=== PATIENT | male | born 1990 | race Hispanic/Latino ===

== ENCOUNTER 2018-06-28 04:29 | Emergency (ER) | payer SELFPAY ==
[2018-06-28] MEDS ORDERED: FLUORESCEIN SODIUM 0.6 MG/WRAP ONE (04:55)
[2018-06-28] MEDS ORDERED: TETRACAINE HCL 0.5% 2ML OPTH ONE (04:55)
--- NOTE | 2018-06-28 05:10 | ER ---
Nurse's Notes [facility] Name: Kosta Raymond Age: 27 yrs Sex: Male : 1990 Arrival Date: 06/28/2018 Time: 04:31 Bed 7 Private MD: Diagnosis: Ocular pain, left eye Presentation: 06/28 04:48 Presenting complaint: Patient states: Pt was getting ready for worked and rubbed his tl2 eye, states he felt like something stabbed it. Denies blurry vision, states that it feels uncomfortable. Transition of care: patient was not received from another setting of care. Mechanism of Injury: No Mechanism of Injury. The patient denies any loss of vision. Onset of symptoms was June 28, 2018 at 03:30. Risk Assessment: Do you want to hurt yourself or someone else? Patient reports no desire to harm self or others. Initial Sepsis Screen: Does the patient meet any 2 criteria? No. Patient's initial sepsis screen is negative. Does the patient have a suspected source of infection? No. Patient's initial sepsis screen is negative. Care prior to arrival: None. 04:48 Method Of Arrival: Ambulatory tl2 04:48 Acuity: MYLES 4 tl2 Triage Assessment: 04:51 General: Appears in no apparent distress. uncomfortable, Behavior is calm, cooperative, tl2 appropriate for age. Pain: Complains of pain in right eye. EENT: Sclera/Cornea are reddened in outer aspect of conjuctiva of right eye, iris of right eye and inner aspect of conjuctiva of right eye. Neuro: Level of Consciousness is awake, alert, obeys commands, Oriented to person, place, time, situation. Historical: - Allergies: 04:51 No Known Allergies; tl2 - Home Meds: 04:51 None [Active]; tl2 - PMHx: 04:51 None; tl2 - PSHx: 04:51 None; tl2 - Immunization history:: Adult Immunizations up to date. - Social history:: Smoking status: Patient/guardian denies using tobacco. - Ebola Screening: : No symptoms or risks identified at this time. - Family history:: not pertinent. Screenin:53 Abuse screen: Denies threats or abuse. Nutritional screening: No deficits noted. tl2 Tuberculosis screening: No symptoms or risk factors identified. Fall Risk None identified. Assessment: 04:53 General: see triage assessment. tl2 05:21 Reassessment: Patient appears in no apparent distress at this time. Patient is alert, aa1 oriented x 3, equal unlabored respirations, skin warm/dry/pink. Discussed d/c \T\ f/u instructions with pt; denies questions or concerns at this time. EENT: Eyes without injury noted. Sclera/Cornea are clear in right eye and left eye. Vital Signs: 04:51 BP 115 / 73; Pulse 64; Resp 16; Temp 97.8; Pulse Ox 99% on R/A; Weight 62.6 kg; Height tl2 5 ft. 7 in. (170.18 cm); Pain 0/10; 04:51 Body Mass Index 21.61 (62.60 kg, 170.18 cm) tl2 ED Course: 04:31 Patient arrived in ED. al2 04:43 Jair Teixeira MD is Attending Physician. [facility] 04:49 Triage completed. tl2 04:51 Arm band placed on right wrist. tl2 04:53 Patient has correct armband on for positive identification. Bed in low position. Call tl2 light in reach. Side rails up X 1. 05:05 Assist provider with eye exam of left eye. using fluorescein stain, Performed by Jair Teixeira MD Patient tolerated well. Patient did not have IV access during this emergency room visit. 05:09 Albaro Be MD is Referral Physician. sonja 05:20 Amanda Turner, RN is Primary Nurse. aa1 Administered Medications: No medications were administered Outcome: 05:09 Discharge ordered by . sonja 05:21 Discharged to home ambulatory. aa1 05:21 Condition: good 05:21 Discharge instructions given to patient, Instructed on discharge instructions, follow up and referral plans. medication usage, Demonstrated understanding of instructions, follow-up care, medications, Prescriptions given X 1. 05:23 Patient left the ED. aa1 Signatures: Amanda Turner, RN RN [email or web address] Jair Teixeira MD MD cha Knox, Taylor, RN RN tl2 Janene Azul al2
--- NOTE | 2018-06-28 05:10 | EDPHYS ---
Physician Documentation [facility] Name: Kosta Raymond Age: 27 yrs Sex: Male : 1990 Arrival Date: 06/28/2018 Time: 04:31 Bed 7 Private MD: ED Physician Jair Teixeira HPI: 06/28 04:58 This 27 yrs old Male presents to ER via Ambulatory with complaints of Eye Pain.sonja 04:58 The patient is experiencing pain, The patient sustained Unknown. Onset: The sonja symptoms/episode began/occurred yesterday. Duration: the symptoms are intermittent. Aggravated by blinking, Alleviated by nothing. Associated signs and symptoms: Pertinent positives: None. Patient wears glasses. Severity of symptoms: At their worst the symptoms were mild moderate in the emergency department the symptoms have improved moderately. The patient has not experienced similar symptoms in the past. Historical: - Allergies: 04:51 No Known Allergies; tl2 - Home Meds: 04:51 None [Active]; tl2 - PMHx: 04:51 None; tl2 - PSHx: 04:51 None; tl2 - Immunization history:: Adult Immunizations up to date. - Social history:: Smoking status: Patient/guardian denies using tobacco. - Ebola Screening: : No symptoms or risks identified at this time. - Family history:: not pertinent. ROS: 04:58 Constitutional: Negative for fever, chills, and weight loss, ENT: Negative for injury, sonja pain, and discharge, Neck: Negative for injury, pain, and swelling, Cardiovascular: Negative for chest pain, palpitations, and edema, Respiratory: Negative for shortness of breath, cough, wheezing, and pleuritic chest pain, Abdomen/GI: Negative for abdominal pain, nausea, vomiting, diarrhea, and constipation, Back: Negative for injury and pain, : Negative for injury, bleeding, discharge, and swelling, MS/Extremity: Negative for injury and deformity, Skin: Negative for injury, rash, and discoloration, Neuro: Negative for headache, weakness, numbness, tingling, and seizure, Psych: Negative for depression, anxiety, suicide ideation, homicidal ideation, and hallucinations, Allergy/Immunology: Negative for hives, rash, and allergies, Endocrine: Negative for neck swelling, polydipsia, polyuria, polyphagia, and marked weight changes, Hematologic/Lymphatic: Negative for swollen nodes, abnormal bleeding, and unusual bruising. 04:58 Eyes: Positive for foreign body sensation, pain, of the outer aspect of conjuctiva of left eye and inner aspect of conjunctiva of left eye. Exam: 04:58 Constitutional: This is a well developed, well nourished patient who is awake, alert, sonja and in no acute distress. Head/Face: Normocephalic, atraumatic. ENT: Nares patent. No nasal discharge, no septal abnormalities noted. Tympanic membranes are normal and external auditory canals are clear. Oropharynx with no redness, swelling, or masses, exudates, or evidence of obstruction, uvula midline. Mucous membranes moist. Neck: Trachea midline, no thyromegaly or masses palpated, and no cervical lymphadenopathy. Supple, full range of motion without nuchal rigidity, or vertebral point tenderness. No Meningismus. Chest/axilla: Normal chest wall appearance and motion. Nontender with no deformity. No lesions are appreciated. Cardiovascular: Regular rate and rhythm with a normal S1 and S2. No gallops, murmurs, or rubs. Normal PMI, no JVD. No pulse deficits. Respiratory: Lungs have equal breath sounds bilaterally, clear to auscultation and percussion. No rales, rhonchi or wheezes noted. No increased work of breathing, no retractions or nasal flaring. Abdomen/GI: Soft, non-tender, with normal bowel sounds. No distension or tympany. No guarding or rebound. No evidence of tenderness throughout. Back: No spinal tenderness. No costovertebral tenderness. Full range of motion. Skin: Warm, dry with normal turgor. Normal color with no rashes, no lesions, and no evidence of cellulitis. MS/ Extremity: Pulses equal, no cyanosis. Neurovascular intact. Full, normal range of motion. Neuro: Awake and alert, GCS 15, oriented to person, place, time, and situation. Cranial nerves II-XII grossly intact. Motor strength 5/5 in all extremities. Sensory grossly intact. Cerebellar exam normal. Normal gait. Psych: Awake, alert, with orientation to person, place and time. Behavior, mood, and affect are within normal limits. 04:58 Eyes: Periorbital structures: appear normal, no acute changes, Pupils: no acute changes, equal, round, and reactive to light and accomodation, Extraocular movements: intact throughout, Conjunctiva: normal, no acute changes, Corneas: are normal, no acute changes, foreign body, is not appreciated, a fluorescein strip employed to appreciate the findings, Sclera: no appreciated abnormality, Anterior chamber: normal, no acute changes, Lids and lashes: appear normal, no acute changes, Visual christopher: are intact, no acute changes, Nystagmus: is not appreciated. Vital Signs: 04:51 BP 115 / 73; Pulse 64; Resp 16; Temp 97.8; Pulse Ox 99% on R/A; Weight 62.6 kg; Height tl2 5 ft. 7 in. (170.18 cm); Pain 0/10; 04:51 Body Mass Index 21.61 (62.60 kg, 170.18 cm) tl2 MDM: 04:43 Patient medically screened. [facility] 04:58 Data reviewed: vital signs, nurses notes. [facility] 06/28 05:09 Order name: Eye Tray; Complete Time: 05:16 [facility] Administered Medications: No medications were administered Disposition: 06/28/18 05:09 Discharged to Home. Impression: Ocular pain, left eye. - Condition is Stable. - Discharge Instructions: Pain Without a Known Cause. - Prescriptions for Polytrim 10,000 unit- 1 mg/mL Ophthalmic drops - instill 1 drop by OPHTHALMIC route every 6 hours; 10 drop. - Medication Reconciliation Form, Thank You Letter, Antibiotic Education, Prescription Opioid Use form. - Follow up: Private Physician; When: 2 - 3 days; Reason: Recheck today's complaints, Continuance of care, Re-evaluation by your physician. Follow up: Albaro Be; When: Today; Reason: Recheck today's complaints, Re-evaluation by your physician. - Problem is new. - Symptoms have improved. Signatures: Amanda Turner RN RN aa1 Jair Teixeira MD MD cha Knox, Taylor RN RN tl2 Corrections: (The following items were deleted from the chart) 05:23 05:09 06/28/2018 05:09 Discharged to Home. Impression: Ocular pain, left eye. Condition aa1 is Stable. Discharge Instructions: Pain Without a Known Cause. Forms are Medication Reconciliation Form, Thank You Letter, Antibiotic Education, Prescription Opioid Use. Follow up: Private Physician; When: 2 - 3 days; Reason: Recheck today's complaints, Continuance of care, Re-evaluation by your physician. Follow up: Albaro Be; When: Today; Reason: Recheck today's complaints, Re-evaluation by your physician. Problem is new. Symptoms have improved. sonja
[2018-06-28 05:27] VITALS: BP 115/73; TEMP 97.8; O2SAT 99
== END 2018-06-28 05:23 | disposition home or self-care (01) ==
LOC: ER 04:29
DX: H57.12 Ocular pain, left eye (principal)
CPT/HCPCS: 99283